=== PATIENT | male | born 1975 | race Caucasian/White ===

== ENCOUNTER → 2016-03-24 | Outpatient (CLI) | payer BC ==
[2016-03-24 13:06] VITALS: BP 114/79
== END ==
LOC: MHUC 12:08
PROVIDERS: ATTEND Physician Assistant
DX: J02.0 Streptococcal pharyngitis (principal)
CPT/HCPCS: 87880; 99213

== ENCOUNTER → 2016-04-07 | Outpatient (CLI) | payer BC ==
[2016-04-07 19:05] VITALS: BP 122/78
== END ==
LOC: MHUC 18:26
PROVIDERS: ATTEND Physician Assistant
DX: J09.X2 Influenza due to identified novel influenza A virus with other respiratory manifestations (principal)
CPT/HCPCS: 99213

== ENCOUNTER → 2016-04-19 | Outpatient (CLI) | payer BC ==
[2016-04-19 17:18] VITALS: BP 112/72
== END ==
LOC: MHUC 16:56
PROVIDERS: ATTEND Physician Assistant
DX: J01.00 Acute maxillary sinusitis, unspecified (principal); J40 Bronchitis, not specified as acute or chronic
CPT/HCPCS: 99213